=== PATIENT | male | born 1980 | race African-American/Black ===

== ENCOUNTER 2018-06-20 16:04 | Emergency (ER) | payer BC ==
[~2018-06-20] VITALS: Ht 182.9 cm; Wt 97.5 kg
[2018-06-20 16:11] VITALS: BP 145/90; Ht 182.9 cm; Wt 97.5 kg
== END 2018-06-20 17:12 | disposition home or self-care (01) ==
LOC: ED 16:04
DX: G89.29 Other chronic pain (principal); M54.5 Low back pain